=== PATIENT | male | born 1965 | race Caucasian/White ===

== ENCOUNTER 2018-06-19 00:13 | Inpatient (IN) | payer MEDICAID ==
[~2018-06-19] VITALS: Ht 177.8 cm; Wt 81.7 kg
[~2018-06-19 00:13] MED LIST: NO HOME MEDS; OXYC-134 PO
[2018-06-19] MEDS ORDERED: opium/belladonna alkaloids No. 15A 30mg rectal suppository RC ONE (01:05)
[2018-06-19] MEDS ORDERED: LORazepam 1 MG tablet PO ONE (01:30)
[2018-06-19] MEDS ORDERED: ondansetron 4mg rapidly disintigrating tab PO ONE (02:10)
[2018-06-19] MEDS ORDERED: LIDOcaine 2% 10ml TOPICAL JELLY (Urojet) MM ONE ×2 (02:10→10:30)
[2018-06-19] MEDS ORDERED: HYDROcodone/acetaminophen 5mg/325mg tablet PO ONE (02:10)
[2018-06-19 03:04] LABS: BASOPHILS # (AUTO) 0.2 X10'3 (0-0.2); BASOPHILS % (AUTO) 1.5 % (0-1); EOSINOPHILS # (AUTO) 0.2 X10'3 (0-0.9); EOSINOPHILS % (AUTO) 1.8 % (0-6); HEMATOCRIT 39.2 % (42.0-52.0); HEMOGLOBIN 13.8 g/dl (14.0-17.9); LYMPHOCYTES % (AUTO) 16.7 % (21-51); MEAN CORPUSCULAR HEMOGLOBIN 32.6 PG (27.0-31.0); MEAN CORPUSCULAR HGB CONC 35.1 % (33.0-36.5); MEAN CORPUSCULAR VOLUME 92.6 FL (78-98); MEAN PLATELET VOLUME 8.7 FL (7.4-10.4); MONOCYTES # (AUTO) 1.4 X10'3 (0-0.9); MONOCYTES % (AUTO) 11.6 % (2-12); NEUTROPHILS # (AUTO) 8.4 X10'3 (1.8-7.7); NEUTROPHILS % (AUTO) 68.4 % (42-75); PLATELET COUNT 259 X10'3 (140-440); RED BLOOD COUNT 4.24 X10'6 (4.70-6.10); RED CELL DISTRIBUTION WIDTH 13.7 % (11.5-14.5); WHITE BLOOD COUNT 12.2 X10'3 (4.5-11.0)
[2018-06-19 03:20] LABS: CLARITY,URINE Clear (Clear); COLOR,URINE Yellow (Yellow); GLUCOSE, URINE Negative (Neg); KETONES,URINE Trace mg/dl (Neg); LEUKOCYTE ESTERASE ,URINE Trace (Neg); NITRITES, URINE Negative (Neg); OCCULT BLOOD,URINE Moderate (Neg); PROTEIN,URINE Negative (Neg); UROBILINOGEN,URINE 0.2 E.U/dL (0.2-1.0)
[2018-06-19 03:20] LABS: ALANINE AMINOTRANSFERASE 36 U/L (12-78); ALBUMIN 3.4 G/DL (3.4-5.0); ALBUMIN/GLOBULIN RATIO 0.9 (1.1-1.5); ALKALINE PHOSPHATASE 247 IU/L (46-116); ANION GAP 10 (8-16); ASPARTATE AMINO TRANSFERASE 50 U/L (10-37); BILIRUBIN,TOTAL 0.5 MG/DL (0.1-1.0); BLOOD UREA NITROGEN 49 MG/DL (7-18); BUN/CREATININE RATIO 13.4 (5.4-32.0); CALCIUM 9.2 MG/DL (8.5-10.1); CHLORIDE 96 MMOL/L (99-107); CREATININE 3.67 MG/DL (0.60-1.10); GLUCOSE 106 MG/DL (70-104); LIPASE 166 U/L (73-393); POTASSIUM 3.9 MMOL/L (3.5-5.1); SODIUM 133 MMOL/L (135-145); TOTAL CARBON DIOXIDE 26.9 MMOL/L (24-32); TOTAL PROTEIN 7.1 G/DL (6.4-8.2); eGFR 17 ML/MIN
[2018-06-19 03:28] LABS: UA COLLECTION TYPE STRAIGHT CATH
[2018-06-19] MEDS ORDERED: normal saline 1000ML IV soln IVB ONE (03:35)
[2018-06-19 03:39] LABS: WBC,URINE 0-4 /HPF (0-4)
[2018-06-19 03:40] LABS: BACTERIA,URINE FEW /HPF (Neg); SQUAMOUS EPITHELIAL CELL,UR FEW /LPF (FEW)
[2018-06-19 03:41] LABS: FINE GRANULAR CAST 0-3 /LPF (NEGATIVE); HYALINE CASTS 0-3 /LPF (NEGATIVE)
[2018-06-19] MEDS ORDERED: morphine 4 MG/ML inj SYRINge IV ONE (03:45)
[2018-06-19] MEDS ORDERED: piperacillin/tazo 3.375gm/50ml 50 ML IV SCH (04:25)
[2018-06-19] MEDS ORDERED: HYDROmorphone 1 mg/ml syringe IV ONE (04:30)
[2018-06-19 04:58] LABS: URINE AMPHETAMINE SCREEN NEGATIVE (Neg); URINE BARBITUATE SCREEN NEGATIVE (Neg); URINE BENZODIAZEPINES SCREEN NEGATIVE (Neg); URINE CANNABINOID SCREEN POSITIVE (Neg); URINE COCAINE SCREEN NEGATIVE (Neg); URINE METHADONE SCREEN NEGATIVE (Neg); URINE OPIATE SCREEN POSITIVE (Neg); URINE PHENCYCLIDINE SCREEN NEGATIVE (Neg)
[2018-06-19] MEDS ORDERED: LORazepam 2 mg/ml vial IV ONE (06:00)
[2018-06-19] MEDS ORDERED: mag hydrox/Alum hydrox/simeth 30ml oral suspension PO PRN (06:25)
[2018-06-19] MEDS ORDERED: magnesium hydroxide 30ml (MOM) UD suspension PO PRN (06:25)
[2018-06-19] MEDS ORDERED: acetaminophen 325mg tablet PO PRN (06:25)
[2018-06-19] MEDS ORDERED: ondansetron/PF 4mg/2ml inj IV PRN (06:25)
[2018-06-19 07:16] LABS: SODIUM 133 MMOL/L (135-145)
[2018-06-19 07:17] LABS: OSMOLALITY 296 MOSM/K (280-300)
[2018-06-19] MEDS ORDERED: sodium bicarbonate (8.4%) inj. 150 MEQ in dextrose 5%-water 1,000 ML IV SCH (07:45)
[2018-06-19] MEDS ORDERED: enoxaparin 30mg/0.3ml syringe SQ SCH (08:00)
[2018-06-19] MEDS ORDERED: cefepime 1GM/NS ADD-VANTAGE 100 ML IV SCH (08:00)
[2018-06-19] MEDS: nicotine 14mg patch - 24hr TD SCH (08:00)
[2018-06-19] MEDS: HYDROmorphone 1 mg/ml syringe IV PRN ×3 (08:47→21:06)
[2018-06-19 08:48] LABS: BASOPHILS # (AUTO) 0.1 X10'3 (0-0.2); BASOPHILS % (AUTO) 0.8 % (0-1); EOSINOPHILS # (AUTO) 0.2 X10'3 (0-0.9); EOSINOPHILS % (AUTO) 2.1 % (0-6); HEMATOCRIT 37.6 % (42.0-52.0); HEMOGLOBIN 12.8 g/dl (14.0-17.9); LYMPHOCYTES # (AUTO) 2.1 X10'3 (1.1-4.8); LYMPHOCYTES % (AUTO) 19.2 % (21-51); MEAN CORPUSCULAR HEMOGLOBIN 31.8 PG (27.0-31.0); MEAN CORPUSCULAR VOLUME 93.6 FL (78-98); MEAN PLATELET VOLUME 8.6 FL (7.4-10.4); MONOCYTES # (AUTO) 1.4 X10'3 (0-0.9); MONOCYTES % (AUTO) 12.7 % (2-12); NEUTROPHILS # (AUTO) 7.1 X10'3 (1.8-7.7); NEUTROPHILS % (AUTO) 65.2 % (42-75); PLATELET COUNT 237 X10'3 (140-440); RED BLOOD COUNT 4.02 X10'6 (4.70-6.10); RED CELL DISTRIBUTION WIDTH 13.4 % (11.5-14.5); WHITE BLOOD COUNT 10.9 X10'3 (4.5-11.0)
[2018-06-19 08:55] LABS: INR 1.3 INR; PARTIAL THROMBOPLASTIN TIME 30 SECONDS (22-32); PROTHROMBIN TIME 12.9 SECONDS (9.0-12.0)
[2018-06-19 09:09] LABS: ALANINE AMINOTRANSFERASE 30 U/L (12-78); ALBUMIN 2.9 G/DL (3.4-5.0); ALBUMIN/GLOBULIN RATIO 0.9 (1.1-1.5); ALKALINE PHOSPHATASE 198 IU/L (46-116); ANION GAP 9 (8-16); ASPARTATE AMINO TRANSFERASE 43 U/L (10-37); BILIRUBIN,TOTAL 0.8 MG/DL (0.1-1.0); BLOOD UREA NITROGEN 48 MG/DL (7-18); BUN/CREATININE RATIO 11.9 (5.4-32.0); CALCIUM 8.2 MG/DL (8.5-10.1); CHLORIDE 100 MMOL/L (99-107); CREATININE 4.03 MG/DL (0.60-1.10); GLUCOSE 97 MG/DL (70-104); POTASSIUM 4.2 MMOL/L (3.5-5.1); SODIUM 134 MMOL/L (135-145); TOTAL CARBON DIOXIDE 24.7 MMOL/L (24-32); TOTAL PROTEIN 6.2 G/DL (6.4-8.2); eGFR 16 ML/MIN
[2018-06-19] MEDS: potassium Cl 20mEq in NS 1,000 ML IV SCH ×2 (09:14→20:25)
[2018-06-19 09:45] VITALS: BP_SYST 116; BP_SYST 118; BP_SYST 121; BP_DIAS 64; BP_DIAS 72; BP_DIAS 74
[2018-06-19 11:00] VITALS: BP 120/73
[2018-06-19 12:31] LABS: OSMOLALITY UA 309 MOSM/K (50-1400)
[2018-06-19 12:33] LABS: CLARITY,URINE CLEAR (Clear); COLOR,URINE YELLOW (Yellow); GLUCOSE, URINE NEGATIVE (Neg); KETONES,URINE NEGATIVE (Neg); LEUKOCYTE ESTERASE ,URINE NEGATIVE (Neg); NITRITES, URINE NEGATIVE (Neg); OCCULT BLOOD,URINE LARGE (Neg); PH,URINE 5.5 (4.8-8.0); PROTEIN,URINE NEGATIVE (Neg); UROBILINOGEN,URINE 0.2 E.U/dL (0.2-1.0)
[2018-06-19 12:35] LABS: SODIUM,URINE RANDOM < 15 MEQ/L
[2018-06-19 12:41] LABS: UA COLLECTION TYPE FOLEY CATH
[2018-06-19 12:42] LABS: MUCUS STRANDS FEW /LPF (Neg); SQUAMOUS EPITHELIAL CELL,UR FEW /LPF (FEW)
[2018-06-19 12:43] LABS: BACTERIA,URINE 1+ /HPF (Neg); HYALINE CASTS 0-3 /LPF (NEGATIVE); WBC,URINE 0-4 /HPF (0-4)
[2018-06-19 13:09] LABS: UA EOSINOPHILS NO EOS /HPF
[2018-06-19 13:50] LABS: BASOPHILS # (AUTO) 0.1 X10'3 (0-0.2); BASOPHILS % (AUTO) 0.8 % (0-1); EOSINOPHILS # (AUTO) 0.2 X10'3 (0-0.9); EOSINOPHILS % (AUTO) 2.3 % (0-6); HEMATOCRIT 37.2 % (42.0-52.0); HEMOGLOBIN 12.8 g/dl (14.0-17.9); LYMPHOCYTES # (AUTO) 1.3 X10'3 (1.1-4.8); LYMPHOCYTES % (AUTO) 14.4 % (21-51); MEAN CORPUSCULAR HGB CONC 34.5 % (33.0-36.5); MEAN CORPUSCULAR VOLUME 92.6 FL (78-98); MEAN PLATELET VOLUME 8.5 FL (7.4-10.4); MONOCYTES # (AUTO) 1.3 X10'3 (0-0.9); NEUTROPHILS # (AUTO) 6.2 X10'3 (1.8-7.7); NEUTROPHILS % (AUTO) 68.5 % (42-75); PLATELET COUNT 203 X10'3 (140-440); RED BLOOD COUNT 4.01 X10'6 (4.70-6.10); RED CELL DISTRIBUTION WIDTH 13.5 % (11.5-14.5)
[2018-06-19 15:48] VITALS: BP 124/78
[2018-06-19 18:00] VITALS: BP 115/71
[2018-06-19 20:00] VITALS: BP_SYST 103; BP_SYST 115; BP_DIAS 65; BP_DIAS 71
[2018-06-19 20:13] LABS: BASOPHILS # (AUTO) 0.1 X10'3 (0-0.2); BASOPHILS % (AUTO) 0.7 % (0-1); EOSINOPHILS # (AUTO) 0.2 X10'3 (0-0.9); EOSINOPHILS % (AUTO) 2.5 % (0-6); HEMATOCRIT 36.5 % (42.0-52.0); HEMOGLOBIN 12.8 g/dl (14.0-17.9); LYMPHOCYTES # (AUTO) 1.5 X10'3 (1.1-4.8); LYMPHOCYTES % (AUTO) 17.3 % (21-51); MEAN CORPUSCULAR HEMOGLOBIN 32.2 PG (27.0-31.0); MEAN CORPUSCULAR HGB CONC 34.9 % (33.0-36.5); MEAN CORPUSCULAR VOLUME 92.3 FL (78-98); MEAN PLATELET VOLUME 8.4 FL (7.4-10.4); MONOCYTES # (AUTO) 1.1 X10'3 (0-0.9); NEUTROPHILS % (AUTO) 67.5 % (42-75); PLATELET COUNT 212 X10'3 (140-440); RED BLOOD COUNT 3.96 X10'6 (4.70-6.10); RED CELL DISTRIBUTION WIDTH 13.6 % (11.5-14.5); WHITE BLOOD COUNT 8.9 X10'3 (4.5-11.0)
[2018-06-19] MEDS: diatr meglu/diatrizoate 30ml oral sol.-(3 dose) bottle PO SCH (20:23)
[2018-06-19 22:00] VITALS: BP 112/66
[2018-06-19] MEDS: HYDROcodone/acetaminophen 5mg/325mg tablet PO PRN (23:52)
[2018-06-20] VITALS (22 sets, daily range): BP systolic 99–138; BP diastolic 50–90
[2018-06-20 01:55] LABS: ALANINE AMINOTRANSFERASE 26 U/L (12-78); ALBUMIN 2.6 G/DL (3.4-5.0); ALBUMIN/GLOBULIN RATIO 0.8 (1.1-1.5); ALKALINE PHOSPHATASE 190 IU/L (46-116); ANION GAP 10 (8-16); ASPARTATE AMINO TRANSFERASE 40 U/L (10-37); BILIRUBIN,TOTAL 0.8 MG/DL (0.1-1.0); BLOOD UREA NITROGEN 52 MG/DL (7-18); BUN/CREATININE RATIO 13.3 (5.4-32.0); CALCIUM 8.1 MG/DL (8.5-10.1); CHLORIDE 101 MMOL/L (99-107); GLUCOSE 81 MG/DL (70-104); POTASSIUM 4.6 MMOL/L (3.5-5.1); SODIUM 135 MMOL/L (135-145); TOTAL CARBON DIOXIDE 24.2 MMOL/L (24-32); TOTAL PROTEIN 5.9 G/DL (6.4-8.2); eGFR 16 ML/MIN
[2018-06-20 01:59] LABS: BASOPHILS # (AUTO) 0.1 X10'3 (0-0.2); BASOPHILS % (AUTO) 1.3 % (0-1); EOSINOPHILS # (AUTO) 0.2 X10'3 (0-0.9); HEMATOCRIT 35.9 % (42.0-52.0); HEMOGLOBIN 12.8 g/dl (14.0-17.9); LYMPHOCYTES # (AUTO) 1.4 X10'3 (1.1-4.8); MEAN CORPUSCULAR HEMOGLOBIN 32.9 PG (27.0-31.0); MEAN CORPUSCULAR HGB CONC 35.5 % (33.0-36.5); MEAN CORPUSCULAR VOLUME 92.6 FL (78-98); MEAN PLATELET VOLUME 9.6 FL (7.4-10.4); MONOCYTES # (AUTO) 0.9 X10'3 (0-0.9); MONOCYTES % (AUTO) 10.2 % (2-12); NEUTROPHILS # (AUTO) 5.9 X10'3 (1.8-7.7); NEUTROPHILS % (AUTO) 69.5 % (42-75); PLATELET COUNT 200 X10'3 (140-440); RED BLOOD COUNT 3.88 X10'6 (4.70-6.10); RED CELL DISTRIBUTION WIDTH 12.9 % (11.5-14.5); WHITE BLOOD COUNT 8.5 X10'3 (4.5-11.0)
[2018-06-20] MEDS: potassium Cl 20mEq in NS 1,000 ML IV SCH ×2 (05:37→14:29)
[2018-06-20] MEDS: HYDROcodone/acetaminophen 5mg/325mg tablet PO PRN ×4 (05:51→21:39)
[2018-06-20] MEDS: diatr meglu/diatrizoate 30ml oral sol.-(3 dose) bottle PO SCH ×2 (06:54→08:52)
[2018-06-20] MEDS: nicotine 14mg patch - 24hr TD SCH (07:00)
[2018-06-20] MEDS: HYDROmorphone 1 mg/ml syringe IV PRN (08:52)
[2018-06-20 09:15] LABS: PSA, FREE 0.05 ng/mL
[2018-06-20 09:22] LABS: BASOPHILS # (AUTO) 0.1 X10'3 (0-0.2); BASOPHILS % (AUTO) 0.9 % (0-1); EOSINOPHILS # (AUTO) 0.2 X10'3 (0-0.9); EOSINOPHILS % (AUTO) 2.7 % (0-6); HEMATOCRIT 36.6 % (42.0-52.0); HEMOGLOBIN 12.8 g/dl (14.0-17.9); LYMPHOCYTES # (AUTO) 1.6 X10'3 (1.1-4.8); LYMPHOCYTES % (AUTO) 18.6 % (21-51); MEAN CORPUSCULAR HEMOGLOBIN 32.4 PG (27.0-31.0); MEAN CORPUSCULAR HGB CONC 34.9 % (33.0-36.5); MEAN CORPUSCULAR VOLUME 92.8 FL (78-98); MEAN PLATELET VOLUME 9.4 FL (7.4-10.4); NEUTROPHILS # (AUTO) 5.8 X10'3 (1.8-7.7); NEUTROPHILS % (AUTO) 65.8 % (42-75); PLATELET COUNT 214 X10'3 (140-440); RED BLOOD COUNT 3.95 X10'6 (4.70-6.10); RED CELL DISTRIBUTION WIDTH 12.9 % (11.5-14.5); WHITE BLOOD COUNT 8.7 X10'3 (4.5-11.0)
[2018-06-20 10:20] LABS: OCCULT BLOOD STOOL POSITIVE (Neg)
[2018-06-20 11:20] LABS: AFP,SERUM, TUMOR MARKER 1.2 ng/mL (0.0-8.3)
[2018-06-20] MEDS ORDERED: fentaNYL/PF 50MCG/1 ML 2ML syringe ONE ×2 (11:27→19:03)
[2018-06-20] MEDS ORDERED: MIDAZolam 5mg/5ml vial ONE (11:27)
[2018-06-20] MEDS ORDERED: LIDOcaine Viscous 15ml cup ONE (11:27)
[2018-06-20] MEDS: ringers solution, lacted 1,000 ML IV SCH ×2 (12:50→16:38)
[2018-06-20 13:44] LABS: PARTIAL THROMBOPLASTIN TIME 28 SECONDS (22-32); PROTHROMBIN TIME 10.2 SECONDS (9.0-12.0)
[2018-06-20] MEDS ORDERED: LORazepam 2 mg/ml vial IV ONE (13:55)
[2018-06-20] MEDS ORDERED: iohexol 300 MG/1 ML 50ml polymer ONE (18:28)
[2018-06-20] MEDS ORDERED: midazolam 2 mg/2 ml injection ONE (19:03)
[2018-06-20] MEDS ORDERED: propofol inj 20 ML IV ONE (19:05)
[2018-06-20] MEDS ORDERED: succinylcholine 20mg/ml inj IV ONE (19:05)
[2018-06-20] MEDS ORDERED: LIDOcaine 2% (20mg/ml) 5ml vial ONE (19:05)
[2018-06-20] MEDS ORDERED: ceFAZolin 1000mg inj ONE ×2 (19:13)
[2018-06-20] MEDS ORDERED: dexamethasone sod phosphate 4mg/ml inj. ONE (19:49)
[2018-06-20] MEDS ORDERED: ondansetron/PF 4mg/2ml inj ONE (19:49)
[2018-06-20] MEDS ORDERED: ePHEDrine 50MG/ML INJ. ONE (19:49)
[2018-06-20] MEDS ORDERED: normal saline 1000ml 1,000 ML IV ONE (20:32)
[2018-06-20] MEDS ORDERED: ondansetron/PF 4mg/2ml inj IV PRN (20:35)
[2018-06-20] MEDS ORDERED: morphine 4 MG/ML inj SYRINge IV PRN (20:35)
[2018-06-20] MEDS ORDERED: HYDROmorphone inj. 0.5 MG/0.5 ML DISP.SYRIN IV PRN ×2 (20:35)
[2018-06-20] MEDS ORDERED: tamsulosin 0.4mg capsule PO SCH (21:00)
[2018-06-20] MEDS: tamsulosin 0.4mg capsule PO SCH (21:38)
[2018-06-21] VITALS (14 sets, daily range): BP systolic 106–130; BP diastolic 43–73
[2018-06-21] MEDS: potassium Cl 20mEq in NS 1,000 ML IV SCH (00:30)
[2018-06-21] MEDS: HYDROcodone/acetaminophen 5mg/325mg tablet PO PRN ×5 (01:51→21:03)
[2018-06-21] MEDS: ringers solution, lacted 1,000 ML IV SCH ×4 (01:52→23:30)
[2018-06-21 05:53] LABS: BASOPHILS % (AUTO) 0.2 % (0-1); EOSINOPHILS % (AUTO) 0.5 % (0-6); HEMATOCRIT 35.8 % (42.0-52.0); HEMOGLOBIN 12.8 g/dl (14.0-17.9); LYMPHOCYTES # (AUTO) 0.7 X10'3 (1.1-4.8); LYMPHOCYTES % (AUTO) 12.2 % (21-51); MEAN CORPUSCULAR HEMOGLOBIN 33.2 PG (27.0-31.0); MEAN CORPUSCULAR HGB CONC 35.7 % (33.0-36.5); MEAN CORPUSCULAR VOLUME 93.1 FL (78-98); MEAN PLATELET VOLUME 9.3 FL (7.4-10.4); MONOCYTES # (AUTO) 0.4 X10'3 (0-0.9); MONOCYTES % (AUTO) 5.9 % (2-12); NEUTROPHILS # (AUTO) 4.9 X10'3 (1.8-7.7); NEUTROPHILS % (AUTO) 81.2 % (42-75); PLATELET COUNT 221 X10'3 (140-440); RED BLOOD COUNT 3.85 X10'6 (4.70-6.10); RED CELL DISTRIBUTION WIDTH 12.5 % (11.5-14.5)
[2018-06-21 06:40] LABS: ALANINE AMINOTRANSFERASE 26 U/L (12-78); ALBUMIN 2.3 G/DL (3.4-5.0); ALBUMIN/GLOBULIN RATIO 0.7 (1.1-1.5); ALKALINE PHOSPHATASE 189 IU/L (46-116); ANION GAP 13 (8-16); ASPARTATE AMINO TRANSFERASE 37 U/L (10-37); BILIRUBIN,TOTAL 0.5 MG/DL (0.1-1.0); BLOOD UREA NITROGEN 53 MG/DL (7-18); BUN/CREATININE RATIO 18.1 (5.4-32.0); CALCIUM 7.6 MG/DL (8.5-10.1); CHLORIDE 104 MMOL/L (99-107); CREATININE 2.93 MG/DL (0.60-1.10); GLUCOSE 100 MG/DL (70-104); SODIUM 137 MMOL/L (135-145); TOTAL CARBON DIOXIDE 20.3 MMOL/L (24-32); TOTAL PROTEIN 5.6 G/DL (6.4-8.2); eGFR 22 ML/MIN
[2018-06-21] MEDS: nicotine 14mg patch - 24hr TD SCH (08:00)
[2018-06-21] MEDS ORDERED: ALPRAZolam 0.25mg tablet PO PRN (10:25)
[2018-06-21] MEDS ORDERED: heparin 1,000 UNITS/NS 500ml 500 ML ICATH ONE (11:00)
[2018-06-21] MEDS ORDERED: fentaNYL/PF 50MCG/1 ML 2ML syringe IV PRN (11:00)
[2018-06-21] MEDS ORDERED: LIDOcaine 1%/PF 5ML 10 MG/ML VIAL SQ ONE (11:00)
[2018-06-21] MEDS ORDERED: midazolam 2 mg/2 ml injection IV PRN (11:00)
[2018-06-21] MEDS ORDERED: LIDOcaine 0.5% (5mg/ml) 50ml vial ONE (11:14)
[2018-06-21] MEDS ORDERED: midazolam 2 mg/2 ml injection ONE (11:22)
[2018-06-21] MEDS ORDERED: fentaNYL/PF 50MCG/1 ML 2ML syringe ONE (11:23)
[2018-06-21] MEDS ORDERED: levoFLOXACIN-Levaquin 500mg/D5 100 ML IV ONE (12:10)
[2018-06-21] MEDS ORDERED: loperamide 2mg capsule PO PRN (13:10)
[2018-06-21] MEDS: tamsulosin 0.4mg capsule PO SCH (21:02)
[2018-06-22] MEDS: temazepam 15mg capsule PO PRN (00:11)
[2018-06-22] MEDS: HYDROmorphone 1 mg/ml syringe IV PRN ×4 (00:11→13:06)
[2018-06-22 02:00] VITALS: BP 119/70
[2018-06-22] MEDS: HYDROcodone/acetaminophen 5mg/325mg tablet PO PRN ×2 (02:01→10:06)
[2018-06-22] MEDS ORDERED: morphine IR (immed. release) 30mg tablet PO PRN (03:50)
[2018-06-22 04:57] LABS: BASOPHILS # (AUTO) 0.1 X10'3 (0-0.2); BASOPHILS % (AUTO) 0.7 % (0-1); EOSINOPHILS # (AUTO) 0.2 X10'3 (0-0.9); EOSINOPHILS % (AUTO) 2.2 % (0-6); HEMATOCRIT 34.1 % (42.0-52.0); HEMOGLOBIN 11.8 g/dl (14.0-17.9); LYMPHOCYTES # (AUTO) 1.7 X10'3 (1.1-4.8); LYMPHOCYTES % (AUTO) 20.7 % (21-51); MEAN CORPUSCULAR HEMOGLOBIN 32.6 PG (27.0-31.0); MEAN CORPUSCULAR HGB CONC 34.6 % (33.0-36.5); MEAN PLATELET VOLUME 9.4 FL (7.4-10.4); MONOCYTES % (AUTO) 11.7 % (2-12); NEUTROPHILS # (AUTO) 5.2 X10'3 (1.8-7.7); NEUTROPHILS % (AUTO) 64.7 % (42-75); PLATELET COUNT 221 X10'3 (140-440); RED BLOOD COUNT 3.63 X10'6 (4.70-6.10); RED CELL DISTRIBUTION WIDTH 12.9 % (11.5-14.5); WHITE BLOOD COUNT 8.2 X10'3 (4.5-11.0)
[2018-06-22 05:21] LABS: ALANINE AMINOTRANSFERASE 28 U/L (12-78); ALBUMIN 2.4 G/DL (3.4-5.0); ALBUMIN/GLOBULIN RATIO 0.8 (1.1-1.5); ALKALINE PHOSPHATASE 219 IU/L (46-116); ANION GAP 10 (8-16); ASPARTATE AMINO TRANSFERASE 45 U/L (10-37); BILIRUBIN,TOTAL 0.3 MG/DL (0.1-1.0); BLOOD UREA NITROGEN 35 MG/DL (7-18); BUN/CREATININE RATIO 19.9 (5.4-32.0); CALCIUM 8.1 MG/DL (8.5-10.1); CHLORIDE 105 MMOL/L (99-107); CREATININE 1.76 MG/DL (0.60-1.10); GLUCOSE 87 MG/DL (70-104); POTASSIUM 4.1 MMOL/L (3.5-5.1); SODIUM 138 MMOL/L (135-145); TOTAL CARBON DIOXIDE 23.1 MMOL/L (24-32); TOTAL PROTEIN 5.5 G/DL (6.4-8.2); eGFR 40 ML/MIN
[2018-06-22] MEDS: ringers solution, lacted 1,000 ML IV SCH (06:10)
[2018-06-22 07:00] VITALS: BP 128/79
[2018-06-22] MEDS: LORazepam 0.5 MG tablet PO PRN (07:29)
[2018-06-22 07:49] LABS: C DIFF ANTIGEN SEE COMMENTS (NEGATIVE); C DIFF SPECIMEN=DIARRHEA? ACCEPTABLE; C DIFFICILE TOXINS A&B NEGATIVE (Neg)
[2018-06-22] MEDS: nicotine 14mg patch - 24hr TD SCH (08:00)
[2018-06-22] MEDS ORDERED: temazepam 15mg capsule PO ONE (08:55)
[2018-06-22 09:27] LABS: C DIFF TOXIN (LAMP) POSITIVE (NEG)
[2018-06-22] MEDS: normal saline 1000ml 1,000 ML IV SCH ×2 (10:30→23:50)
[2018-06-22 11:00] VITALS: BP 131/73
[2018-06-22 15:00] VITALS: BP 141/84
[2018-06-22] MEDS: HYDROcodone/acetaminophen 10/325mg tab PO PRN ×2 (16:48→20:59)
[2018-06-22 19:00] VITALS: BP 121/78
[2018-06-22] MEDS: tamsulosin 0.4mg capsule PO SCH (20:59)
[2018-06-22 23:00] VITALS: BP 139/82
[2018-06-23] VITALS (8 sets, daily range): BP systolic 112–147; BP diastolic 50–89
[2018-06-23] MEDS: HYDROcodone/acetaminophen 10/325mg tab PO PRN ×6 (01:10→23:21)
[2018-06-23] MEDS: LORazepam 0.5 MG tablet PO PRN ×5 (03:03→23:21)
[2018-06-23] MEDS: normal saline 1000ml 1,000 ML IV SCH (04:04)
[2018-06-23 06:19] LABS: BASOPHILS # (AUTO) 0.1 X10'3 (0-0.2); BASOPHILS % (AUTO) 1.6 % (0-1); EOSINOPHILS # (AUTO) 0.1 X10'3 (0-0.9); EOSINOPHILS % (AUTO) 1.7 % (0-6); HEMATOCRIT 38.9 % (42.0-52.0); LYMPHOCYTES # (AUTO) 1.1 X10'3 (1.1-4.8); LYMPHOCYTES % (AUTO) 12.9 % (21-51); MEAN CORPUSCULAR HEMOGLOBIN 31.5 PG (27.0-31.0); MEAN CORPUSCULAR HGB CONC 33.4 % (33.0-36.5); MEAN CORPUSCULAR VOLUME 94.3 FL (78-98); MEAN PLATELET VOLUME 9.1 FL (7.4-10.4); MONOCYTES # (AUTO) 0.9 X10'3 (0-0.9); MONOCYTES % (AUTO) 10.3 % (2-12); NEUTROPHILS # (AUTO) 6.2 X10'3 (1.8-7.7); NEUTROPHILS % (AUTO) 73.5 % (42-75); PLATELET COUNT 232 X10'3 (140-440); RED BLOOD COUNT 4.12 X10'6 (4.70-6.10); WHITE BLOOD COUNT 8.4 X10'3 (4.5-11.0)
[2018-06-23 06:35] LABS: ALANINE AMINOTRANSFERASE 29 U/L (12-78); ALBUMIN 2.4 G/DL (3.4-5.0); ALBUMIN/GLOBULIN RATIO 0.7 (1.1-1.5); ALKALINE PHOSPHATASE 232 IU/L (46-116); ANION GAP 10 (8-16); ASPARTATE AMINO TRANSFERASE 45 U/L (10-37); BILIRUBIN,TOTAL 0.6 MG/DL (0.1-1.0); BLOOD UREA NITROGEN 21 MG/DL (7-18); BUN/CREATININE RATIO 11.9 (5.4-32.0); CALCIUM 7.9 MG/DL (8.5-10.1); CHLORIDE 104 MMOL/L (99-107); CREATININE 1.77 MG/DL (0.60-1.10); GLUCOSE 79 MG/DL (70-104); POTASSIUM 4.3 MMOL/L (3.5-5.1); SODIUM 139 MMOL/L (135-145); TOTAL CARBON DIOXIDE 24.6 MMOL/L (24-32); TOTAL PROTEIN 5.8 G/DL (6.4-8.2); eGFR 40 ML/MIN
[2018-06-23] MEDS: nicotine 14mg patch - 24hr TD SCH (08:00)
[2018-06-23] MEDS ORDERED: polyethylene glycol 3350 17gm powd pack PO PRN (14:15)
[2018-06-23] MEDS: vancomcyin 250mg capsules PO SCH (19:06)
[2018-06-23] MEDS: docusate sod 100mg capsule PO SCH (19:07)
[2018-06-23] MEDS ORDERED: docusate sod 100mg capsule PO SCH (20:00)
[2018-06-23] MEDS: polyethylene glycol 3350 17gm powd pack PO SCH (20:58)
[2018-06-23] MEDS: tamsulosin 0.4mg capsule PO SCH (20:59)
[2018-06-24] MEDS: vancomcyin 250mg capsules PO SCH ×4 (02:29→20:49)
[2018-06-24] MEDS: normal saline 1000ml 1,000 ML IV SCH ×2 (02:33→16:09)
[2018-06-24 03:00] VITALS: BP 139/81
[2018-06-24] MEDS: LORazepam 0.5 MG tablet PO PRN ×5 (04:37→20:44)
[2018-06-24] MEDS: HYDROcodone/acetaminophen 10/325mg tab PO PRN ×5 (04:38→20:45)
[2018-06-24 06:26] LABS: BASOPHILS # (AUTO) 0.1 X10'3 (0-0.2); EOSINOPHILS # (AUTO) 0.2 X10'3 (0-0.9); EOSINOPHILS % (AUTO) 2.1 % (0-6); HEMATOCRIT 35.3 % (42.0-52.0); HEMOGLOBIN 12.2 g/dl (14.0-17.9); LYMPHOCYTES # (AUTO) 1.1 X10'3 (1.1-4.8); LYMPHOCYTES % (AUTO) 13.5 % (21-51); MEAN CORPUSCULAR HEMOGLOBIN 32.5 PG (27.0-31.0); MEAN CORPUSCULAR HGB CONC 34.6 % (33.0-36.5); MEAN CORPUSCULAR VOLUME 93.9 FL (78-98); MEAN PLATELET VOLUME 8.5 FL (7.4-10.4); MONOCYTES # (AUTO) 0.7 X10'3 (0-0.9); MONOCYTES % (AUTO) 8.9 % (2-12); NEUTROPHILS # (AUTO) 6.1 X10'3 (1.8-7.7); NEUTROPHILS % (AUTO) 74.5 % (42-75); PLATELET COUNT 222 X10'3 (140-440); RED BLOOD COUNT 3.76 X10'6 (4.70-6.10); WHITE BLOOD COUNT 8.2 X10'3 (4.5-11.0)
[2018-06-24 06:42] LABS: ALANINE AMINOTRANSFERASE 25 U/L (12-78); ALBUMIN 2.2 G/DL (3.4-5.0); ALBUMIN/GLOBULIN RATIO 0.7 (1.1-1.5); ALKALINE PHOSPHATASE 237 IU/L (46-116); ANION GAP 8 (8-16); ASPARTATE AMINO TRANSFERASE 42 U/L (10-37); BILIRUBIN,TOTAL 0.5 MG/DL (0.1-1.0); BLOOD UREA NITROGEN 16 MG/DL (7-18); BUN/CREATININE RATIO 9.2 (5.4-32.0); CALCIUM 7.8 MG/DL (8.5-10.1); CHLORIDE 105 MMOL/L (99-107); CREATININE 1.73 MG/DL (0.60-1.10); GLUCOSE 81 MG/DL (70-104); POTASSIUM 4.2 MMOL/L (3.5-5.1); SODIUM 138 MMOL/L (135-145); TOTAL CARBON DIOXIDE 24.8 MMOL/L (24-32); TOTAL PROTEIN 5.4 G/DL (6.4-8.2); eGFR 41 ML/MIN
[2018-06-24 07:00] VITALS: BP 129/79
[2018-06-24] MEDS: nicotine 14mg patch - 24hr TD SCH (08:00)
[2018-06-24] MEDS: docusate sod 100mg capsule PO SCH ×2 (08:29→20:44)
[2018-06-24 11:00] VITALS: BP 137/79
[2018-06-24 15:00] VITALS: BP 137/89
[2018-06-24 19:00] VITALS: BP 126/78
[2018-06-24] MEDS: tamsulosin 0.4mg capsule PO SCH (20:44)
[2018-06-24] MEDS: polyethylene glycol 3350 17gm powd pack PO SCH (20:45)
[2018-06-24] MEDS: temazepam 15mg capsule PO PRN ×2 (22:44→23:39)
[2018-06-24 23:00] VITALS: BP 135/87
[2018-06-25] MEDS: morphine 4 MG/ML inj SYRINge IV PRN ×7 (00:28→19:11)
[2018-06-25] MEDS: vancomcyin 250mg capsules PO SCH ×4 (02:04→20:59)
[2018-06-25] MEDS: HYDROcodone/acetaminophen 10/325mg tab PO PRN ×4 (02:10→21:37)
[2018-06-25 03:00] VITALS: BP 136/96
[2018-06-25] MEDS: normal saline 1000ml 1,000 ML IV SCH ×2 (03:50→18:30)
[2018-06-25 06:00] VITALS: BP 141/86
[2018-06-25 09:15] LABS: BASOPHILS # (AUTO) 0.1 X10'3 (0-0.2); BASOPHILS % (AUTO) 0.6 % (0-1); EOSINOPHILS # (AUTO) 0.2 X10'3 (0-0.9); EOSINOPHILS % (AUTO) 2.5 % (0-6); HEMATOCRIT 35.8 % (42.0-52.0); HEMOGLOBIN 12.7 g/dl (14.0-17.9); LYMPHOCYTES # (AUTO) 1.1 X10'3 (1.1-4.8); LYMPHOCYTES % (AUTO) 13.6 % (21-51); MEAN CORPUSCULAR HEMOGLOBIN 32.9 PG (27.0-31.0); MEAN CORPUSCULAR HGB CONC 35.4 % (33.0-36.5); MEAN PLATELET VOLUME 7.9 FL (7.4-10.4); MONOCYTES # (AUTO) 0.8 X10'3 (0-0.9); MONOCYTES % (AUTO) 10.2 % (2-12); NEUTROPHILS % (AUTO) 73.1 % (42-75); PLATELET COUNT 214 X10'3 (140-440); RED BLOOD COUNT 3.85 X10'6 (4.70-6.10); RED CELL DISTRIBUTION WIDTH 13.8 % (11.5-14.5); WHITE BLOOD COUNT 8.2 X10'3 (4.5-11.0)
[2018-06-25 09:30] LABS: ALANINE AMINOTRANSFERASE 22 U/L (12-78); ALBUMIN 2.3 G/DL (3.4-5.0); ALBUMIN/GLOBULIN RATIO 0.7 (1.1-1.5); ALKALINE PHOSPHATASE 272 IU/L (46-116); ANION GAP 12 (8-16); ASPARTATE AMINO TRANSFERASE 46 U/L (10-37); BILIRUBIN,TOTAL 0.6 MG/DL (0.1-1.0); BLOOD UREA NITROGEN 14 MG/DL (7-18); BUN/CREATININE RATIO 9.1 (5.4-32.0); CALCIUM 7.9 MG/DL (8.5-10.1); CHLORIDE 105 MMOL/L (99-107); CREATININE 1.54 MG/DL (0.60-1.10); GLUCOSE 78 MG/DL (70-104); PHOSPHORUS 2.6 MG/DL (2.3-4.5); SODIUM 140 MMOL/L (135-145); TOTAL CARBON DIOXIDE 22.6 MMOL/L (24-32); TOTAL PROTEIN 5.7 G/DL (6.4-8.2); eGFR 47 ML/MIN
[2018-06-25 09:32] LABS: MAGNESIUM 0.8 MG/DL (1.5-2.4)
[2018-06-25] MEDS: docusate sod 100mg capsule PO SCH ×3 (10:23→20:59)
[2018-06-25] MEDS: nicotine 14mg patch - 24hr TD SCH (10:24)
[2018-06-25 11:00] VITALS: BP 131/85
[2018-06-25] MEDS ORDERED: potassium Cl 40MEQ/NS 500ml 500 ML IV PRN ×2 (11:10)
[2018-06-25] MEDS ORDERED: magnesium 4gm in 100ml NS 100 ML IV PRN (11:10)
[2018-06-25] MEDS ORDERED: magnesium Cl slow-release 64mg tablet PO PRN (11:10)
[2018-06-25] MEDS ORDERED: potassium Cl 20 mEq SR tablet PO PRN ×2 (11:10)
[2018-06-25] MEDS: magnesium Cl slow-release 64mg tablet PO SCH ×2 (11:35→20:56)
[2018-06-25] MEDS ORDERED: iohexol 300mg/ml 100ml inj. ONE (13:53)
[2018-06-25 15:00] VITALS: BP 132/85
[2018-06-25 19:00] VITALS: BP 127/80
[2018-06-25] MEDS: tamsulosin 0.4mg capsule PO SCH (20:56)
[2018-06-25] MEDS: polyethylene glycol 3350 17gm powd pack PO SCH (20:56)
[2018-06-25] MEDS: LORazepam 0.5 MG tablet PO PRN (21:33)
[2018-06-25 23:00] VITALS: BP 129/81
[2018-06-26] VITALS (21 sets, daily range): BP systolic 118–146; BP diastolic 68–92
[2018-06-26] MEDS: morphine 4 MG/ML inj SYRINge IV PRN ×2 (00:10→04:14)
[2018-06-26] MEDS: temazepam 15mg capsule PO PRN (00:10)
[2018-06-26] MEDS: LORazepam 0.5 MG tablet PO PRN (02:07)
[2018-06-26] MEDS: HYDROcodone/acetaminophen 10/325mg tab PO PRN ×5 (02:08→23:33)
[2018-06-26] MEDS: vancomcyin 250mg capsules PO SCH ×4 (02:09→19:40)
[2018-06-26 05:20] LABS: BASOPHILS # (AUTO) 0.1 X10'3 (0-0.2); BASOPHILS % (AUTO) 0.6 % (0-1); EOSINOPHILS # (AUTO) 0.2 X10'3 (0-0.9); HEMATOCRIT 35.6 % (42.0-52.0); HEMOGLOBIN 12.1 g/dl (14.0-17.9); LYMPHOCYTES # (AUTO) 1.2 X10'3 (1.1-4.8); LYMPHOCYTES % (AUTO) 14.1 % (21-51); MEAN CORPUSCULAR HEMOGLOBIN 32.2 PG (27.0-31.0); MEAN CORPUSCULAR HGB CONC 34.1 % (33.0-36.5); MEAN CORPUSCULAR VOLUME 94.5 FL (78-98); MEAN PLATELET VOLUME 8.3 FL (7.4-10.4); MONOCYTES # (AUTO) 0.9 X10'3 (0-0.9); NEUTROPHILS # (AUTO) 5.8 X10'3 (1.8-7.7); NEUTROPHILS % (AUTO) 71.3 % (42-75); PLATELET COUNT 215 X10'3 (140-440); RED BLOOD COUNT 3.77 X10'6 (4.70-6.10); WHITE BLOOD COUNT 8.2 X10'3 (4.5-11.0)
[2018-06-26 05:38] LABS: ALANINE AMINOTRANSFERASE 22 U/L (12-78); ALBUMIN 2.3 G/DL (3.4-5.0); ALBUMIN/GLOBULIN RATIO 0.7 (1.1-1.5); ALKALINE PHOSPHATASE 266 IU/L (46-116); ANION GAP 14 (8-16); ASPARTATE AMINO TRANSFERASE 44 U/L (10-37); BILIRUBIN,TOTAL 0.7 MG/DL (0.1-1.0); BLOOD UREA NITROGEN 15 MG/DL (7-18); BUN/CREATININE RATIO 8.7 (5.4-32.0); CALCIUM 7.8 MG/DL (8.5-10.1); CHLORIDE 104 MMOL/L (99-107); CREATININE 1.73 MG/DL (0.60-1.10); GLUCOSE 60 MG/DL (70-104); PHOSPHORUS 3.7 MG/DL (2.3-4.5); POTASSIUM 4.3 MMOL/L (3.5-5.1); SODIUM 140 MMOL/L (135-145); TOTAL CARBON DIOXIDE 22.4 MMOL/L (24-32); TOTAL PROTEIN 5.7 G/DL (6.4-8.2); eGFR 41 ML/MIN
[2018-06-26 06:20] LABS: MAGNESIUM 0.8 MG/DL (1.5-2.4)
[2018-06-26] MEDS: magnesium Cl slow-release 64mg tablet PO SCH (07:29)
[2018-06-26] MEDS: magnesium 1gm/100ml D5W IVPB 100 ML IV PRN ×2 (07:30→19:41)
[2018-06-26] MEDS: nicotine 14mg patch - 24hr TD SCH (08:00)
[2018-06-26] MEDS: normal saline 1000ml 1,000 ML IV SCH (09:18)
[2018-06-26] MEDS ORDERED: normal saline 1000ml 1,000 ML IV SCH (10:54)
[2018-06-26] MEDS ORDERED: fentaNYL/PF 50MCG/1 ML 2ML syringe IV PRN (10:55)
[2018-06-26] MEDS ORDERED: midazolam 2 mg/2 ml injection ONE (10:55)
[2018-06-26] MEDS ORDERED: LIDOcaine 1%/PF 5ML 10 MG/ML VIAL SQ ONE (10:55)
[2018-06-26] MEDS ORDERED: fentaNYL/PF 50MCG/1 ML 2ML syringe ONE (10:55)
[2018-06-26] MEDS ORDERED: midazolam 2 mg/2 ml injection IV PRN (10:55)
[2018-06-26] MEDS ORDERED: LIDOcaine 1%/PF 5ML 10 MG/ML VIAL ONE (11:22)
[2018-06-26] MEDS: magnesium oxide 400mg tablet PO SCH ×2 (15:05→23:32)
[2018-06-26] MEDS: lactobacillus rhamnosus 10,000 MMU CELLS/CAPSULE PO SCH (19:40)
[2018-06-26] MEDS: docusate sod 100mg capsule PO SCH (19:41)
[2018-06-26] MEDS: tamsulosin 0.4mg capsule PO SCH (20:43)
[2018-06-26] MEDS: polyethylene glycol 3350 17gm powd pack PO SCH (20:43)
[2018-06-27] MEDS: vancomcyin 250mg capsules PO SCH ×4 (01:45→20:18)
[2018-06-27] MEDS: morphine 4 MG/ML inj SYRINge IV PRN ×8 (02:48→23:44)
[2018-06-27] MEDS: HYDROcodone/acetaminophen 10/325mg tab PO PRN ×5 (04:23→23:04)
[2018-06-27 06:00] VITALS: BP 139/85
[2018-06-27 06:52] LABS: BASOPHILS # (AUTO) 0.1 X10'3 (0-0.2); BASOPHILS % (AUTO) 0.7 % (0-1); EOSINOPHILS # (AUTO) 0.3 X10'3 (0-0.9); EOSINOPHILS % (AUTO) 3.7 % (0-6); HEMATOCRIT 35.6 % (42.0-52.0); HEMOGLOBIN 12.1 g/dl (14.0-17.9); LYMPHOCYTES # (AUTO) 1.2 X10'3 (1.1-4.8); LYMPHOCYTES % (AUTO) 14.3 % (21-51); MEAN CORPUSCULAR HGB CONC 34.1 % (33.0-36.5); MEAN CORPUSCULAR VOLUME 93.9 FL (78-98); MEAN PLATELET VOLUME 8.1 FL (7.4-10.4); MONOCYTES # (AUTO) 1.1 X10'3 (0-0.9); MONOCYTES % (AUTO) 12.7 % (2-12); NEUTROPHILS # (AUTO) 5.7 X10'3 (1.8-7.7); NEUTROPHILS % (AUTO) 68.6 % (42-75); PLATELET COUNT 220 X10'3 (140-440); RED BLOOD COUNT 3.79 X10'6 (4.70-6.10); RED CELL DISTRIBUTION WIDTH 14.1 % (11.5-14.5); WHITE BLOOD COUNT 8.3 X10'3 (4.5-11.0)
[2018-06-27] MEDS: LORazepam 0.5 MG tablet PO PRN ×2 (06:53→15:51)
[2018-06-27 07:08] LABS: ALANINE AMINOTRANSFERASE 25 U/L (12-78); ALBUMIN 2.2 G/DL (3.4-5.0); ALBUMIN/GLOBULIN RATIO 0.6 (1.1-1.5); ALKALINE PHOSPHATASE 299 IU/L (46-116); ANION GAP 11 (8-16); ASPARTATE AMINO TRANSFERASE 47 U/L (10-37); BILIRUBIN,TOTAL 0.5 MG/DL (0.1-1.0); BLOOD UREA NITROGEN 26 MG/DL (7-18); BUN/CREATININE RATIO 10.7 (5.4-32.0); CALCIUM 8.3 MG/DL (8.5-10.1); CHLORIDE 102 MMOL/L (99-107); CREATININE 2.42 MG/DL (0.60-1.10); GLUCOSE 92 MG/DL (70-104); LACTATE DEHYDROGENASE 863 U/L (85-227); MAGNESIUM 2.3 MG/DL (1.5-2.4); PHOSPHORUS 3.7 MG/DL (2.3-4.5); POTASSIUM 4.1 MMOL/L (3.5-5.1); SODIUM 135 MMOL/L (135-145); TOTAL CARBON DIOXIDE 22.1 MMOL/L (24-32); TOTAL PROTEIN 5.7 G/DL (6.4-8.2); eGFR 28 ML/MIN
[2018-06-27] MEDS: nicotine 14mg patch - 24hr TD SCH (07:35)
[2018-06-27] MEDS: docusate sod 100mg capsule PO SCH ×2 (07:35→20:14)
[2018-06-27] MEDS: lactobacillus rhamnosus 10,000 MMU CELLS/CAPSULE PO SCH ×2 (07:35→20:14)
[2018-06-27] MEDS: magnesium oxide 400mg tablet PO SCH ×3 (07:35→23:03)
[2018-06-27 10:03] VITALS: BP 144/77
[2018-06-27 18:00] VITALS: BP 136/86
[2018-06-27] MEDS: polyethylene glycol 3350 17gm powd pack PO SCH (20:14)
[2018-06-27] MEDS: tamsulosin 0.4mg capsule PO SCH (20:16)
[2018-06-27 22:00] VITALS: BP_SYST 155; BP_SYST 157; BP_DIAS 87; BP_DIAS 90
[2018-06-27] MEDS: temazepam 15mg capsule PO PRN (23:47)
[2018-06-28] MEDS: temazepam 15mg capsule PO PRN (02:20)
[2018-06-28] MEDS: vancomcyin 250mg capsules PO SCH ×4 (02:20→20:13)
[2018-06-28] MEDS: morphine 4 MG/ML inj SYRINge IV PRN ×6 (02:20→22:55)
[2018-06-28] MEDS: HYDROcodone/acetaminophen 10/325mg tab PO PRN ×4 (04:51→20:16)
[2018-06-28 05:38] LABS: BASOPHILS # (AUTO) 0.1 X10'3 (0-0.2); BASOPHILS % (AUTO) 0.9 % (0-1); EOSINOPHILS # (AUTO) 0.4 X10'3 (0-0.9); EOSINOPHILS % (AUTO) 4.3 % (0-6); HEMATOCRIT 36.7 % (42.0-52.0); HEMOGLOBIN 12.7 g/dl (14.0-17.9); LYMPHOCYTES # (AUTO) 1.3 X10'3 (1.1-4.8); LYMPHOCYTES % (AUTO) 15.4 % (21-51); MEAN CORPUSCULAR HEMOGLOBIN 32.3 PG (27.0-31.0); MEAN CORPUSCULAR HGB CONC 34.5 % (33.0-36.5); MEAN CORPUSCULAR VOLUME 93.6 FL (78-98); MEAN PLATELET VOLUME 8.2 FL (7.4-10.4); MONOCYTES # (AUTO) 0.9 X10'3 (0-0.9); MONOCYTES % (AUTO) 10.6 % (2-12); NEUTROPHILS # (AUTO) 5.7 X10'3 (1.8-7.7); NEUTROPHILS % (AUTO) 68.8 % (42-75); PLATELET COUNT 224 X10'3 (140-440); RED BLOOD COUNT 3.92 X10'6 (4.70-6.10); RED CELL DISTRIBUTION WIDTH 14.2 % (11.5-14.5); WHITE BLOOD COUNT 8.3 X10'3 (4.5-11.0)
[2018-06-28 06:00] VITALS: BP 135/82
[2018-06-28 06:12] LABS: ALANINE AMINOTRANSFERASE 29 U/L (12-78); ALBUMIN 2.3 G/DL (3.4-5.0); ALBUMIN/GLOBULIN RATIO 0.7 (1.1-1.5); ALKALINE PHOSPHATASE 370 IU/L (46-116); ANION GAP 12 (8-16); ASPARTATE AMINO TRANSFERASE 69 U/L (10-37); BILIRUBIN,TOTAL 0.6 MG/DL (0.1-1.0); BLOOD UREA NITROGEN 29 MG/DL (7-18); BUN/CREATININE RATIO 12.9 (5.4-32.0); CALCIUM 8.8 MG/DL (8.5-10.1); CHLORIDE 102 MMOL/L (99-107); CREATININE 2.25 MG/DL (0.60-1.10); GLUCOSE 81 MG/DL (70-104); MAGNESIUM 1.9 MG/DL (1.5-2.4); PHOSPHORUS 3.3 MG/DL (2.3-4.5); POTASSIUM 4.3 MMOL/L (3.5-5.1); SODIUM 137 MMOL/L (135-145); TOTAL CARBON DIOXIDE 22.6 MMOL/L (24-32); TOTAL PROTEIN 5.8 G/DL (6.4-8.2); eGFR 30 ML/MIN
[2018-06-28] MEDS: nicotine 14mg patch - 24hr TD SCH (07:32)
[2018-06-28] MEDS: docusate sod 100mg capsule PO SCH ×2 (07:35→20:13)
[2018-06-28] MEDS: magnesium oxide 400mg tablet PO SCH ×3 (07:35→22:55)
[2018-06-28] MEDS: lactobacillus rhamnosus 10,000 MMU CELLS/CAPSULE PO SCH ×2 (07:35→20:13)
[2018-06-28] MEDS: LORazepam 0.5 MG tablet PO PRN ×3 (09:09→18:20)
[2018-06-28 10:00] VITALS: BP 145/73
[2018-06-28] MEDS ORDERED: bisacodyl 10mg suppository rectal RC PRN (12:05)
[2018-06-28 18:00] VITALS: BP 141/87
[2018-06-28] MEDS: polyethylene glycol 3350 17gm powd pack PO SCH (20:13)
[2018-06-28] MEDS: tamsulosin 0.4mg capsule PO SCH (20:13)
[2018-06-28 22:00] VITALS: BP_SYST 129; BP_SYST 139; BP_SYST 140; BP_DIAS 77; BP_DIAS 84; BP_DIAS 93
[2018-06-29] MEDS: vancomcyin 250mg capsules PO SCH ×4 (01:29→19:11)
[2018-06-29] MEDS: morphine 4 MG/ML inj SYRINge IV PRN ×7 (01:30→21:42)
[2018-06-29] MEDS: LORazepam 0.5 MG tablet PO PRN (03:32)
[2018-06-29 05:00] VITALS: BP 144/83
[2018-06-29 06:01] LABS: BASOPHILS # (AUTO) 0.1 X10'3 (0-0.2); BASOPHILS % (AUTO) 0.7 % (0-1); EOSINOPHILS # (AUTO) 0.3 X10'3 (0-0.9); EOSINOPHILS % (AUTO) 2.6 % (0-6); HEMATOCRIT 36.8 % (42.0-52.0); HEMOGLOBIN 12.6 g/dl (14.0-17.9); LYMPHOCYTES # (AUTO) 1.1 X10'3 (1.1-4.8); LYMPHOCYTES % (AUTO) 10.8 % (21-51); MEAN CORPUSCULAR HEMOGLOBIN 32.4 PG (27.0-31.0); MEAN CORPUSCULAR HGB CONC 34.3 % (33.0-36.5); MEAN CORPUSCULAR VOLUME 94.4 FL (78-98); MONOCYTES % (AUTO) 10.6 % (2-12); NEUTROPHILS # (AUTO) 7.5 X10'3 (1.8-7.7); NEUTROPHILS % (AUTO) 75.3 % (42-75); PLATELET COUNT 220 X10'3 (140-440); RED CELL DISTRIBUTION WIDTH 14.1 % (11.5-14.5); WHITE BLOOD COUNT 9.9 X10'3 (4.5-11.0)
[2018-06-29 06:05] LABS: ALBUMIN 2.3 G/DL (3.4-5.0)
[2018-06-29 06:14] LABS: ALANINE AMINOTRANSFERASE 36 U/L (12-78); ALBUMIN/GLOBULIN RATIO 0.6 (1.1-1.5); ALKALINE PHOSPHATASE 387 IU/L (46-116); ANION GAP 13 (8-16); ASPARTATE AMINO TRANSFERASE 67 U/L (10-37); BILIRUBIN,TOTAL 0.5 MG/DL (0.1-1.0); BLOOD UREA NITROGEN 29 MG/DL (7-18); BUN/CREATININE RATIO 12.9 (5.4-32.0); CALCIUM 9.2 MG/DL (8.5-10.1); CHLORIDE 100 MMOL/L (99-107); CREATININE 2.24 MG/DL (0.60-1.10); GLUCOSE 104 MG/DL (70-104); MAGNESIUM 1.5 MG/DL (1.5-2.4); PHOSPHORUS 3.1 MG/DL (2.3-4.5); POTASSIUM 3.8 MMOL/L (3.5-5.1); SODIUM 135 MMOL/L (135-145); TOTAL PROTEIN 5.9 G/DL (6.4-8.2); eGFR 31 ML/MIN
[2018-06-29] MEDS: magnesium oxide 400mg tablet PO SCH ×3 (07:11→19:11)
[2018-06-29] MEDS: docusate sod 100mg capsule PO SCH ×2 (07:11→19:11)
[2018-06-29] MEDS: lactobacillus rhamnosus 10,000 MMU CELLS/CAPSULE PO SCH ×2 (07:11→19:11)
[2018-06-29] MEDS: nicotine 14mg patch - 24hr TD SCH (07:15)
[2018-06-29] MEDS: HYDROcodone/acetaminophen 10/325mg tab PO PRN ×4 (08:19→23:30)
[2018-06-29 10:00] VITALS: BP 133/90
[2018-06-29 18:00] VITALS: BP 148/88
[2018-06-29] MEDS: tamsulosin 0.4mg capsule PO SCH (19:11)
[2018-06-29] MEDS: polyethylene glycol 3350 17gm powd pack PO SCH ×2 (19:12→21:00)
[2018-06-29] MEDS: temazepam 15mg capsule PO PRN (21:47)
[2018-06-29 22:00] VITALS: BP 132/79
[2018-06-30] MEDS: morphine 4 MG/ML inj SYRINge IV PRN ×6 (01:40→16:25)
[2018-06-30] MEDS: vancomcyin 250mg capsules PO SCH ×3 (01:40→13:51)
[2018-06-30] MEDS: HYDROcodone/acetaminophen 10/325mg tab PO PRN ×3 (03:23→12:43)
[2018-06-30 05:00] VITALS: BP 132/84
[2018-06-30 06:44] LABS: BASOPHILS # (AUTO) 0.1 X10'3 (0-0.2); EOSINOPHILS # (AUTO) 0.3 X10'3 (0-0.9); EOSINOPHILS % (AUTO) 3.5 % (0-6); HEMATOCRIT 34.8 % (42.0-52.0); LYMPHOCYTES # (AUTO) 1.1 X10'3 (1.1-4.8); LYMPHOCYTES % (AUTO) 13.4 % (21-51); MEAN CORPUSCULAR HEMOGLOBIN 32.1 PG (27.0-31.0); MEAN CORPUSCULAR HGB CONC 34.4 % (33.0-36.5); MEAN CORPUSCULAR VOLUME 93.2 FL (78-98); MEAN PLATELET VOLUME 8.1 FL (7.4-10.4); MONOCYTES # (AUTO) 0.9 X10'3 (0-0.9); MONOCYTES % (AUTO) 10.6 % (2-12); NEUTROPHILS % (AUTO) 71.5 % (42-75); PLATELET COUNT 209 X10'3 (140-440); RED BLOOD COUNT 3.73 X10'6 (4.70-6.10); RED CELL DISTRIBUTION WIDTH 14.4 % (11.5-14.5); WHITE BLOOD COUNT 8.4 X10'3 (4.5-11.0)
[2018-06-30 07:01] LABS: ALANINE AMINOTRANSFERASE 30 U/L (12-78); ALBUMIN 2.2 G/DL (3.4-5.0); ALBUMIN/GLOBULIN RATIO 0.6 (1.1-1.5); ALKALINE PHOSPHATASE 354 IU/L (46-116); ANION GAP 13 (8-16); ASPARTATE AMINO TRANSFERASE 55 U/L (10-37); BILIRUBIN,TOTAL 0.7 MG/DL (0.1-1.0); BLOOD UREA NITROGEN 25 MG/DL (7-18); BUN/CREATININE RATIO 12.7 (5.4-32.0); CALCIUM 8.5 MG/DL (8.5-10.1); CHLORIDE 101 MMOL/L (99-107); CREATININE 1.97 MG/DL (0.60-1.10); GLUCOSE 73 MG/DL (70-104); MAGNESIUM 1.1 MG/DL (1.5-2.4); PHOSPHORUS 3.1 MG/DL (2.3-4.5); POTASSIUM 3.7 MMOL/L (3.5-5.1); SODIUM 138 MMOL/L (135-145); TOTAL PROTEIN 5.6 G/DL (6.4-8.2); eGFR 35 ML/MIN
[2018-06-30] MEDS: nicotine 14mg patch - 24hr TD SCH (07:43)
[2018-06-30] MEDS: lactobacillus rhamnosus 10,000 MMU CELLS/CAPSULE PO SCH (07:45)
[2018-06-30] MEDS: docusate sod 100mg capsule PO SCH (07:45)
[2018-06-30] MEDS: magnesium oxide 400mg tablet PO SCH ×2 (07:45→16:25)
[2018-06-30 10:00] VITALS: BP 145/85
[2018-06-30 10:14] VITALS: BP 145/85
[2018-06-30] MEDS ORDERED: lactulose 20gm/30ml cup PO SCH (14:00)
== END 2018-06-30 17:35 | disposition short-term general hospital (02) | DRG 691 ==
LOC: ER 00:14 → ED HOLD 06:21 → EDBEDREQ 07:48 → PCU 3S 09:09 → ORTHO 4S 06-26 19:00
PROVIDERS: ADMIT Family Medicine; ATTEND Family Medicine
PROC: CT231ZZ Tomographic (Tomo) Nuclear Medicine Imaging of Kidneys, Ureters and Bladder using Technetium 99m (Tc-99m) (ICD-10-PCS; principal; 2018-06-19)
PROC: 0DBP8ZX Excision of Rectum, Via Natural or Artificial Opening Endoscopic, Diagnostic (ICD-10-PCS; 2018-06-20)
PROC: 0T768DZ Dilation of Right Ureter with Intraluminal Device, Via Natural or Artificial Opening Endoscopic (ICD-10-PCS; 2018-06-20)
PROC: BT1D1ZZ Fluoroscopy of Right Kidney, Ureter and Bladder using Low Osmolar Contrast (ICD-10-PCS; 2018-06-20)
PROC: 0T9B80Z Drainage of Bladder with Drainage Device, Via Natural or Artificial Opening Endoscopic (ICD-10-PCS; 2018-06-20)
PROC: CT231ZZ Tomographic (Tomo) Nuclear Medicine Imaging of Kidneys, Ureters and Bladder using Technetium 99m (Tc-99m) (ICD-10-PCS; 2018-06-25)
PROC: BW211ZZ Computerized Tomography (CT Scan) of Abdomen and Pelvis using Low Osmolar Contrast (ICD-10-PCS; 2018-06-25)
PROC: 0FB13ZX Excision of Right Lobe Liver, Percutaneous Approach, Diagnostic (ICD-10-PCS; 2018-06-26)
DX: C85.10 Unspecified B-cell lymphoma, unspecified site (principal); E43 Unspecified severe protein-calorie malnutrition; N17.9 Acute kidney failure, unspecified; A04.72 Enterocolitis due to Clostridium difficile, not specified as recurrent; E87.2 Acidosis; N13.1 Hydronephrosis with ureteral stricture, not elsewhere classified; R16.0 Hepatomegaly, not elsewhere classified; E83.42 Hypomagnesemia; C82.50 Diffuse follicle center lymphoma, unspecified site; F12.90 Cannabis use, unspecified, uncomplicated; N40.1 Benign prostatic hyperplasia with lower urinary tract symptoms; R33.8 Other retention of urine; F41.1 Generalized anxiety disorder; F17.210 Nicotine dependence, cigarettes, uncomplicated; G47.00 Insomnia, unspecified; K62.89 Other specified diseases of anus and rectum; K59.00 Constipation, unspecified; K64.9 Unspecified hemorrhoids; N50.89 Other specified disorders of the male genital organs; R31.9 Hematuria, unspecified; Z88.5 Allergy status to narcotic agent; Z71.6 Tobacco abuse counseling; Z68.25 Body mass index [BMI] 25.0-25.9, adult
CPT/HCPCS: 36415; 45331; 47000; 71045; 72100; 74176; 74177; 74181; 74420; 76000; 76700; 76705; 76775; 76881; 77012; 78707; 80053; 80305; 81001; 82103; 82272; 82378; 82570; 83605; 83615; 83690; 83735; 83874; 83930; 83935; 84100; 84133; 84145; 84153; 84154; 84295; 84300; 85025; 85610; 85651; 85730; 86140; 86885; 86900; 86901; 87040; 87070; 87088; 87207; 87324; 87449; 87493; 93005; 96361; 96365; 96375; 99152; 99153; 99285; A4315; A4346; A4353; A4402; A4620; A6250; A6257; A9562; C1758; C1769; C1894; C2617; G0500; J0330; J0690; J1100; J1170; J1956; J2001; J2060; J2250; J2270; J2405; J2543; J2704; J3010; J3475; J7030; J7120; Q9963; Q9967